=== PATIENT | female | born 1955 | race Two or more races ===

== ENCOUNTER 2021-05-16 10:59 | Outpatient (CLI) | payer OTHER | END 2021-05-16 23:59 | disposition home or self-care (01) | LOC: LAB 10:59 | PROVIDERS: ATTEND Specialist | DX: Z01.812 Encounter for preprocedural laboratory examination (principal); Z20.822 Contact with and (suspected) exposure to COVID-19 | CPT/HCPCS: C9803; U0003 ==

== ENCOUNTER 2021-05-22 05:04 | Inpatient (IN) | payer OTHER ==
[2021-05-22] VITALS (10 sets, daily range): BP systolic 111–148; BP diastolic 70–90
[~2021-05-22] VITALS: Ht 149.9 cm; Wt 61.2 kg
[~2021-05-22 05:04] MED LIST: ANESTHESIA TRAY IN PYXIS 1 EA TRAY MC ONE
--- NOTE | 2021-05-22 06:22 | NUR ---
PATIENT ARRIVED FOR SURGERY OF RIGHT KNEE ARTHROPLASTY, AMBULATORY. A/O X4. NO S/S OF DISTRESS NOTED. NO COMPLAIN OF PAIN. CALL LIGHT WITHIN REACH. BED IN LOWEST AND LOCKED POSITION. CONSENTS FOR RIGHT KNEE ARTHROPLASTY, BLOOD TRANSFUSION AND ANESTHESIA SIGNED BY THE PATIENT AND ATTACHED TO THE CHART. NPO SINCE 1999. LEFT HAND IV INSERTED. PATIENT' S OWN WALKER AT THE BEDSIDE, WILL ENDORSE TO THE NEXT SHIFT RN.
[2021-05-22] MEDS ORDERED: POLYMYXIN B SULFATE 500,000 UNITS ONE (06:25)
[2021-05-22] MEDS ORDERED: BUPIVACAINE 0.5 % PF 150 MG/30 ML VIAL ONE ×2 (06:26→06:53)
[2021-05-22] MEDS ORDERED: ANESTHESIA TRAY IN PYXIS 1 EA TRAY MC ONE (06:26)
--- NOTE | 2021-05-22 06:40 | NUR ---
PATIENT IS ALREADY PICKED UP FOR SURGERY.
[2021-05-22] MEDS ORDERED: HYDROMORPHONE INJ 2 MG/ML DISP.SYRIN ONE (06:52)
[2021-05-22] MEDS ORDERED: TRANEXAMIC ACID 3,000 MG in SODIUM CHLORIDE IRRIG SOLUTION 70 ML IR ONE (07:00)
--- NOTE | 2021-05-22 07:22 | NUR ---
RN OPENING NOTES REPORTED FROM ORIN VELASQUEZ EMT INTERMEDIATE THAT PT IS IN SURGERY FOR RIGHT KNEE ARTHROPLASTY.
[2021-05-22] MEDS ORDERED: BUPIVACAINE 0.25% 75 MG/30 ML VIAL ONE (08:23)
[2021-05-22] MEDS ORDERED: FENTANYL PF 100MCG/2ML AMPUL ONE (08:55)
--- NOTE | 2021-05-22 10:10 | NUR ---
MS RN NOTES PT RETURNED FROM SURGERY AT 0935 VIA HER BED ACCOMPANIED BY ORIN IRVIN AND ARPIT S/P RIGHT TOTAL KNEE ARTHROPLASTY. PT IS AWAKE, A/O X4, ABLE TO MAKE NEEDS KNOWN. V/S TAKEN AND RECORDED. PT ON ROOM AIR, BREATHING EVEN AND UNLABORED. PT WITH RIGHT KNEE DRESSING C/D/I WRAPPED WITH YVES BANDAGE AND COLD COMPRESS APPLIED AT SITE. PT WITH IVF OF D5 1/2 NS AT 125 ML/HR RUNNING TO LEFT HAND G#22, NO S/S X OF INFILTRATION NOTED. ALL ORDERS RECEIVED AND WILL CARRY OUT. PT PROVIDED WITH INCENTIVE SPIROMETER AND DEMONSTRATED HOW TO USE IT AND PT VERBALIZED UNDERSTANDING. SAFETY MEASURES MAINTAINED: BED IN LOWEST LOCKED POSITION WITH SR UP X2. CALL LIGHT W/IN EASY REACH OF PT. WILL CONTINUE TO MONITOR PT.
[2021-05-22] MEDS: IV D5/0.45 NACL 1,000 ML IV PRN ×2 (10:19→18:59)
[2021-05-22] MEDS ORDERED: HYDROMORPHONE 1 MG/1 ML DISP.SYRIN IM/IV/SC ONE (10:26)
[2021-05-22] MEDS ORDERED: MAG HYDROX/AL HYDROX/SIMETH 30 ML UDC PO PRN (10:30)
[2021-05-22] MEDS ORDERED: MENTHOL/CETYLPYRD (CEPACOL) 1 LOZ LOZENGE PO PRN (10:30)
[2021-05-22] MEDS ORDERED: CLONIDINE HCL 0.1 MG TABLET PO PRN (10:30)
[2021-05-22] MEDS ORDERED: ONDANSETRON HCL/PF 4 MG/2 ML VIAL IV PRN (10:30)
[2021-05-22] MEDS ORDERED: diphenhydrAMINE HCL 25 MG CAPSULE PO PRN (10:30)
--- NOTE | 2021-05-22 10:45 | NUR ---
RN NOTES PT C/O ACHING AND THROBBING PAIN ON RIGHT KNEE, 6/10 SCALE. DILAUDID 0.5MG/0.5ML IVP ADMINISTERED AT 1044 PER MD ORDER. WILL CONTINUE TO MONITOR AND REASSESS PT.
[2021-05-22] MEDS ORDERED: oxyCODONE IR immediate release 5 MG PO ONE (12:00)
--- NOTE | 2021-05-22 12:04 | NUR ---
RN NOTES PT C/O ACHING AND THROBBING PAIN ON RIGHT KNEE, 6/10 SCALE. OXY IR 5MG TAB PO ADMINISTERED AT 1202 PER MD ORDER. WILL CONTINUE TO MONITOR AND REASSESS PT.
[2021-05-22] MEDS: ANCEF 1 GM/50 ML D5W IV SCH ×4 (15:09→22:29)
[2021-05-22] MEDS: oxyCODONE IR immediate release 5 MG PO PRN (16:00)
--- NOTE | 2021-05-22 16:01 | NUR ---
RN NOTES PT C/O ACHING AND THROBBING PAIN ON RIGHT KNEE, 5/10 SCALE. OXY IR 5MG TAB PO ADMINISTERED AT 1600 PER MD ORDER. WILL CONTINUE TO MONITOR AND REASSESS PT.
[2021-05-22] MEDS: DOCUSATE SODIUM 100 MG CAPSULE PO SCH (16:03)
[2021-05-22] MEDS: HYDROMORPHONE 1 MG/1 ML DISP.SYRIN IM/IV/SC PRN (18:04)
--- NOTE | 2021-05-22 18:10 | NUR ---
RN NOTES PT COMPLAINED OF ACHING AND THROBBING PAIN ON RIGHT KNEE, 8/10 SCALE. DILAUDID 0.5MG/0.5ML IVP ADMINISTERED AT 1804. WILL CONTINUE TO MONITOR AND REASSESS PT.
--- NOTE | 2021-05-22 18:37 | NUR ---
MS RN CLOSING NOTES PATIENT IN BED AWAKE AND WATCHING TV AT THIS TIME. ALERT AND ORIENTED X 4. ABLE TO MAKE NEEDS KNOWN. ON ROOM AIR, BREATHING EVEN AND UN LABORED, NO SOB NOTED DURING THE DAY. RIGHT KNEE DRESSING C/D/I WRAPPED WITH YVES BANDAGE. IVF OF D5 1/2 NS AT 125 ML/HR RUNNING TO LEFT HAND G#22 IV ACCESS, NO S/S X OF INFILTRATION NOTED AT SITE. ALL NEEDS AND CARE ATTENDED WELL. SAFETY MEASURES IN PLACED: BED LOCKED AND IN LOWEST POSITION, SIDE-RAILS UP X2, CALL LIGHT AND TRAY TABLE WITHIN EASY REACH OF PT. WILL ENDORSE CARLOS TO SHANK TAPER NURSE.
--- NOTE | 2021-05-22 19:45 | NUR ---
MS RN NOTES RECEIVED ON BED SLEEPING,S/P RIGHT KNEE ARTHROPLASTY BY DR CASTRO,DRESSING INTACT AND DRY.WITH IIVF D51/2 NS AT 125ML/HR RATE INFUSING ON LEFT HAND SALINE LOCK VIA IV PUMP.ENCOURAGED TO USE IS WHILE AWAKE.MONITOR FOR PAIN,CALL LIGHT IN REACH,NEEDS ANTICIPATED.
[2021-05-22] MEDS: FAMOTIDINE (20 MG) 20 MG TABLET PO SCH (20:49)
[2021-05-22] MEDS: RIVAROXABAN 10 MG TABLET PO SCH (22:29)
[2021-05-23] MEDS: IV D5/0.45 NACL 1,000 ML IV PRN ×3 (02:04→23:02)
[2021-05-23] MEDS: HYDROMORPHONE 1 MG/1 ML DISP.SYRIN IM/IV/SC PRN ×6 (04:05→22:53)
--- NOTE | 2021-05-23 04:05 | NUR ---
MS RN NOTES PAIN MANAGEMENT C/O RIGHT KNEE PAIN 9/10 ON PAIN SCALE,DILAUDID 0.5MG IV GIVEN ORDERED.
--- NOTE | 2021-05-23 06:02 | NUR ---
MS RN NOTES PAIN MANAGEMENT STILL IN PAIN 8/10 ON PAIN SCALE,DILAUDID 0.5 MG IV GIVEN ORDERED.POSSIBLE PT TODAY FOR AMBULATION,IVF INFUSING WELL ON LEFT HAND SALINE LOCK,ALL DUE MEDS ADMINISTERED,CALL LIGHT IN REACH,NEEDS ATTENDED.
[2021-05-23 06:46] LABS: HEMATOCRIT 30 % (33-45); HEMOGLOBIN 10.2 g/dL (11.5-14.8); LYMPHOCYTES # (AUTO) 1.8 K/uL (0.8-4.8); MEAN CORPUSCULAR HGB CONC 34 g/dl (31.0-36.0); MEAN CORPUSCULAR VOLUME 84 fL (82-100); MONOCYTES % (AUTO) 10.4 % (2.0-12.0); NEUTROPHILS # (AUTO) 6.4 K/uL (1.8-8.9); NEUTROPHILS % (AUTO) 69.6 % (43.0-81.0); PLATELET COUNT (AUTO) 200 K/uL (150-450); RED BLOOD CELL COUNT(AUTO) 3.61 MIL/uL (4.0-5.2); WHITE BLOOD COUNT (AUTO) 9.1 K/uL (4.3-11.0)
[2021-05-23 06:59] LABS: CALCIUM, SERUM 8.1 mg/dL (8.5-10.1); CREATININE 0.6 mg/dL (0.6-1.3); POTASSIUM 3.6 mmol/L (3.5-5.1)
--- NOTE | 2021-05-23 07:28 | NUR ---
RN OPENING NOTE- PATIENT IN BED SLEEPING , EASILUY AWAKENED. ALERT AND ORIENTED X 4. ABLE TO MAKE NEEDS KNOWN. ON ROOM AIR, BREATHING EVEN AND NON-LABORED, NO SOB NOTED . RIGHT KNEE DRESSING C/D/I WRAPPED WITH YVES BANDAGE. IVF OF D5 1/2 NS AT 125 ML/HR RUNNING TO LEFT HAND G#22 IV ACCESS, NO S/S X OF INFILTRATION NOTED AT SITE. ALL NEEDS ATTENDED. SAFETY MEASURES IN PLACED: BED LOCKED AND IN LOWEST POSITION, SIDE-RAILS UP X2, CALL LIGHT AND TRAY TABLE WITHIN EASY REACH OF PT. MONITOR / ASSIST
[2021-05-23 08:35] VITALS: BP 115/72
[2021-05-23] MEDS: DOCUSATE SODIUM 100 MG CAPSULE PO SCH ×2 (09:27→16:46)
[2021-05-23] MEDS: FAMOTIDINE (20 MG) 20 MG TABLET PO SCH ×2 (09:27→21:05)
--- NOTE | 2021-05-23 11:19 | NUR ---
SS Consult: SS consult for discharge planning. Pt. Is a 65-year-old female. Pt. demonstrates adequate insight to the reason for hospitalization. Pt. was oriented x4, alert, and cooperative. During interview, pt. was capable of following directions, made appropriate eye-contact, and appeared groomed. Per pt., she came in for knee surgery due to a having a fall at work. Pt.s speech was at a normal rate. Pt.s mood was elevated. SW explored pt.s hx of mental health and substance abuse. Pt. reported no hx of mental health, substance abuse, suicidal or homicidal ideation. Pt. denies auditory hallucinations, visual hallucinations, paranoia, or delusions. SW explored pt.s living situation. Per pt., she lives alone [[address] [place] [address]]. Pt. stated that she is independent with her ADLs. SW explored pt.s financial status. Per pt., she is currently not working and will be applying for disability due to her knee. Pt. does not have questions or concerns at the moment. Plan: LILO provided available resources and pt. accepted. Once discharge, per pt., she will return to home [[address] [place] [address]]. Per pt., insurance will be setting up transportation for her. Resources Provided: ABUSE PREVENTION: ELDER ABUSE HOTLINE (02/11) ADULT PROTECTIVE SERVICES HOTLINE LONG-TERM CARE [facility] Region AREA ON AGING (HOTLINE) ADULT DAY HEALTH CARE CARE CENTERS: Private pay or Medi-melissa funded adult day care [place] [facility] [place] [facility] , [facility] Services , [facility] , [facility] Adult [facility] Health Care , [facility] Adult Day Health Care , [facility] Adult Daycare Center , [facility] , Benjie Aguilar [facility] , Aldie ALZHEIMERS DISEASE/DEMENTIA: Alzheimers Association Helpline [facility] Chapter www.alz.org/[facility] Department of Aging www.lacity.org Family Caregiver [place] www.caregiver.org [place] Caregiver Resources Center/Family Support www.[facility].org CANCER RESOURCES: [place] Cancer Society www.cancer.org Cancer Support Community www.CancerSupportVvsb.org: CancerCare www.cancercare.org [facility] Cancer Support Midwest www.[facility].org [facility] HEALTH ASSOCIATIONS: AARP www.aarp.org ALS Association (ask for Nicole) www.als.org [place] Diabetes Association www.diabetes.org [place] Heart Association www.heart.org Belgian Lung Association www.lungusa.org Belgian Parkinson Disease Association www.apdaparkinson.org Belgian Wolford , www.redcross.org Arthritis Foundation www.arthritis.org Crohns & Colitis Foundation of Belgian www.ccfa.org/chapters/jayshree National Multiple Sclerosis Society www.nationalmssociety.org Myasthenia Gravis Foundation www.myasthenia-ca.org National Stroke Association www.stroke.org CONSERVATORSHIP & GUARDIANSHIP: AARP Felicitas Dow Legal Services Center for Health Care Rights Eldercare Information and Referral Electrical Instrument Maker Foundation [facility]: [facility] Bar Referral Service [facility] Neighborhood Legal Services Office of the Public Guardian Cost EYESIGHT DISORDER RESOURCES: [place] Macular Degeneration Foundation [facility] www.[facility].org GRIEF AND BEREAVEMENT RESOURCES: The [place] , [facility] THE HOPE Connection , [facility] Bereavement Center , [place] HEARING DISORDER RESOURCES: [place] Telephone Access Program Deaf and Disabled Telecommunications Program www.ddtp.[facility].ca.gov HearRx Hearing Centers (Bureau) Better Hearing Systems , [place] GLAD ([facility] Agency on Deafness) V/ TTY; Marketing Project Manager , [facility] Hearing [facility] -low income hearing aid assistance www.[place] heart institutefoundation.org [place] [facility] , Sonya HELP AT HOME CAREGIVER SUPPORT: In Home Support Services (Must have Medi-Melissa to be eligible) *Ask for a list of agencies that provide services to assist with care in the home. Local Senior Centers also have listings of care providers. HOME SAFETY MODIFICATIONS AND EQUIPMENT: Senior centers have additional referrals. [place] Housing and Community Investment Dept. Handyworker Program (low income) or Visit http://hcidla.[facility].org/sqy-jhpjcz-nf for more information National Seating and Mobility and/or ; Forever Active www.Mont[employer] Financial Stay Home Safe www.Stayhomesafe.com LIFE ALERT RESPONSE SYSTEM: Kypha Services 753-464-0035 www. Get Satisfaction Life Alert 360-706-2039 www.POI.edo Life Station 028-363-1430 www.TTCP Energy Finance Fund II.edo Safe Return 271-623-6973 www.VAZATA.or/safereturn Cell Phones for Seniors www.Ground Zero [employer] Corporation MEALS AND FOOD PROGRAMS: [place] Meals on Wheels [phone] [place] Meals on Wheels [phone] [facility] [phone] [place] to the Homebound [phone] [place] to the Homebound [phone] [facility] to the Homebound [phone] [facility] to the Homebound [phone] [facility] Hospital[facility]ie [phone] [facility] [phone] ONE Generation [phone] [facility] [phone] [facility] [phone] Meals on Wheels [phone] For all ages: $6.85/ meal w side. Delivered M-F from 10 am-1pm. Application and payment is done over the phone. Frozen meals available for weekends. Emergency Food [facility] [phone] [facility] Day Haul Youth Supervisor [phone] [facility] [phone] [facility]- Brown bag lunches [phone] [facility] [phone] MEAL/GROCERY DELIVERY PROGRAMS: [facility] Gourmet Meals [phone]- [facility] [phone]- [facility] Magic Kitchen [phone] Moms Meals [phone] (ask Dejesus for Discount Select grocery stores may provide delivery. MEDICAL INSURANCE SUPPORT SERVICES: Center for Health Care Rights [phone] Health Insurance Counseling/Advocacy Programs (HICAP)-Must have Medicare. Offers counseling for Medi-Melissa eligibility [phone] Department of Public Day Haul Youth Supervisor [phone] www.[facility].ca.gov Medicare [phone] www.socialsecurity.org Social Security [phone] SENIOR ACTIVITY PROGRAMS: *Contact a local senior center, adult school, recreation facility or community college for education, fitness, recreation, and social programs. Aquatic Therapy and Adapted Exercise programs through [facility] [phone] Encore at [facility] [phone] www.[facility]/encore U- Senior Friends [phone] [place] Senior Programs 834-755-1688 www.oasisnet.org Suddenly 65 www..edo SENIOR CENTERS: [facility] [phone] [facility] Newman [phone] [facility] [phone] [facility] [phone] [facility] [phone] [facility] [phone] [facility] [phone] [facility] [phone] One [facility] [phone] [facility] [phone] [facility] [phone] [facility] [phone] [facility] [phone] TRANSPORTATION: Local [facility] may have applications for transportation programs and additional resources. ACCESS Services [phone] Transportation for seniors and disabled persons 7 days a week requiring 254 hr. advance reservation. Must apply and register for program lilian eligible. Ridejoy [phone] or [phone] Transportation for seniors and persons with ADA card/metro disabled card in the [facility]. M-F only. Must register for services. ONE GENERATION [phone] Serves 65 years + in conjunction with city ride program. Must be registered with both programs. A to B Transport [phone] Provides wheelchair/gurney van service. Adult Medical Transport [phone] Accepts [facility] with prior authorization. Care Van [phone] Provides wheelchair Transport. City Wide Transportation [phone] Provides gurney service Gentle Care [phone] Gurney Transport. All Town Transportation [phone] wheelchair & gurney transport D Transportation [phone] wheelchair & gurney transport [place] Non-Emergency Transport [phone] wheelchair & gurney transport [facility] [phone] Short Term Transportation primarily for adults with disabilities on social security income. Nominal fee may apply and a reservation is required. [facility] Cab [phone] or [phone] [facility] [phone] [place] [address] Services [phone] For additional programs & services VETERANS RESOURCES: Submissions for Aid and Attendance should be done directly to Federal VA office locatd at : [facility] [phone] [place] [address]. [facility] [phone] National Caregiver Support Line [phone] Melissa [facility] Veterans Services Field Office [phone] [place] Department of Affairs [phone] Pension Information [phone]
[2021-05-23] MEDS: oxyCODONE IR immediate release 5 MG PO PRN ×3 (11:34→18:48)
[2021-05-23 16:11] VITALS: BP 153/76
[2021-05-23] MEDS: RIVAROXABAN 10 MG TABLET PO SCH (16:45)
--- NOTE | 2021-05-23 18:39 | NUR ---
RN CLOSING NOTE- PATIENT IN BED ALERT AND ORIENTED X 4. ABLE TO MAKE NEEDS KNOWN. ON ROOM AIR, BREATHING EVEN AND NON-LABORED, NO SOB NOTED . RIGHT KNEE DRESSING C/D/I WRAPPED WITH YVES BANDAGE. IVF OF D5 1/2 NS AT 125 ML/HR RUNNING TO LEFT HAND G#22 IV ACCESS, NO S/S X OF INFILTRATION NOTED AT SITE. ALL NEEDS ATTENDED. SAFETY MEASURES IN PLACED: BED LOCKED AND IN LOWEST POSITION, SIDE-RAILS UP X2, CALL LIGHT AND TRAY TABLE WITHIN EASY REACH OF PT. MONITOR / ASSIST
[2021-05-23 20:00] VITALS: BP 152/72
--- NOTE | 2021-05-23 20:00 | NUR ---
MS RN OPENING NOTES: RECEIVED PATIENT AWAKE IN BED, BED IN LOW POSITION CALL LIGHTS WITHIN REACH, NO COMPLAIN OF PAIN AND DISCOMFORT AT THIS TIME, PATIENT ON ROOM AIR SATURATING WELL, WITH IV LINE AT LEFT HAND 322 WITH ONGOING D5 1/2NSS@125ML PER HOUR INFUSING WELL, PATIENT IS A/O X4 ABLE TO EXPRESS NEEDS, PATIENT KEPT CLEAN AND DRY ALL NEED MET, WILL CONTINUE TO MONITOR.
[2021-05-24] MEDS: oxyCODONE IR immediate release 5 MG PO PRN ×3 (02:42→16:24)
[2021-05-24] MEDS: HYDROMORPHONE 1 MG/1 ML DISP.SYRIN IM/IV/SC PRN ×4 (06:05→20:08)
--- NOTE | 2021-05-24 06:36 | NUR ---
MS RN CLOSING NOTE: PATIENT AWAKE IN BED, BED IN LOW POSITION, CALL LIGHTS WITHIN REACH, NO COMPLAIN OF PAIN AND DISCOMFORT AT THIS TIME, ON PAIN MANAGEMENT, ON ROOM AIUR SATURATING WELL, NO SOB WAS OBSERVED PATIENT WITH IV LINE AT LEFT HAND #22 WITH ONGOING D5 1/2 NSS @125ML PER HOUR INFUSING WELL, KEPT CLEAN AND DRY, ALL NEEDS MET, ENDORSE TO INCOMING SHIFT.
--- NOTE | 2021-05-24 07:24 | NUR ---
MS RN OPENING NOTES PATIENT ON BED ALERT/ ORIENTED X 4. PATIENT IS ON ROOM AIR TOLERATING WELL, WITH NO SIGNS OF DISTRESS. ABLE TO VERBALIZE NEEDS, NO COMPLAIN OF PAIN AT THIS TIME. PATIENT WITH IV ACCESS ON LEFT HAND G22 WITH IV FLUID OF D5 1/2 NSS RUNNING AT 125ML/HR. WITH RIGHT KNEE DRESSING, DRY AND INTACT. SAFETY MEASURES IN PLACED. CALL LIGHT WITHIN REACH. BED ON LOWEST LOCKED POSITION, SIDE RAILS UP X2. WILL CONTINUE TO MONITOR PATIENT.
--- NOTE | 2021-05-24 07:29 | NUR ---
RN NOTES: SPOKE TO DR VELA AND WAS GIVEN AN UPDATE TO PATIENT, DR VELA ORDER TO GIVE OXY IR BEFORE MY SHIFT CHANGE FOR PATIENT PREPARATION FOR PT ASSESSMENT NOTED AND CARRIED OUT.
[2021-05-24 08:54] VITALS: BP 152/79
[2021-05-24] MEDS: DOCUSATE SODIUM 100 MG CAPSULE PO SCH ×2 (08:54→16:24)
[2021-05-24] MEDS: FAMOTIDINE (20 MG) 20 MG TABLET PO SCH ×2 (08:54→20:08)
[2021-05-24] MEDS ORDERED: oxyCODONE IR immediate release 5 MG PO ONE (09:22)
[2021-05-24] MEDS ORDERED: TRAM50TA2 MT (12:00)
[2021-05-24] MEDS ORDERED: RIVA10TA PO (12:00)
[2021-05-24 16:00] VITALS: BP 147/70
[2021-05-24] MEDS: RIVAROXABAN 10 MG TABLET PO SCH (16:25)
[2021-05-24] MEDS: ENSURE ENLIVE 237 ML LIQUID (VANILLA) PO SCH (17:00)
--- NOTE | 2021-05-24 18:48 | NUR ---
MS RN CLOSING NOTES PATIENT ON BED ALERT/ ORIENTED X 4. PATIENT IS ON ROOM AIR TOLERATING WELL, WITH NO SIGNS OF DISTRESS. ABLE TO VERBALIZE NEEDS, NO COMPLAIN OF PAIN AT THIS TIME. PATIENT WITH IV ACCESS ON LEFT HAND G22 ON SALINE LOCK. WITH RIGHT KNEE DRESSING, DRY AND INTACT. SAFETY MEASURES IN PLACED. CALL LIGHT WITHIN REACH. BED ON LOWEST LOCKED POSITION, SIDE RAILS UP X2. WILL ENDORSE TO NEXT SHIFT FOR CONTINUITY OF CARE.
--- NOTE | 2021-05-24 19:25 | NUR ---
MS RN OPENING NOTES RECEIVED PATIENT LAYING AWAKE IN BED. A/O X4. PATIENT WITH REGULAR AND UNLABORED BREATHING ON ROOM AIR, TOLERATED WELL. NO SIGNS OR SYMPTOMS OF DISTRESS NOTED AT THIS TIME. NO COMPLAINS OF PAIN OR DISCOMFORT AT THIS TIME. IV ACCESS L HAND G #22 SL. IV ACCESS PATENT AND INTACT. SAFETY PRECAUTIONS ENFORCED WITH BED LOCKED AND AT LOWEST POSITION. SIDERAILS UP X2. CALL LIGHT WITHIN REACH AT ALL TIMES. WILL CONTINUE TO MONITOR PATIENT.
[2021-05-24 20:00] VITALS: BP 144/74
--- NOTE | 2021-05-24 20:09 | NUR ---
MS RN NOTES PATIENT COMPLAINED OF PAIN ADMINISTERED DILAUDID ORDERED BY THE HOSPITALIST. WILL CONTINUE TO MONITOR PATIENT.
[2021-05-25] MEDS: HYDROMORPHONE 1 MG/1 ML DISP.SYRIN IM/IV/SC PRN ×2 (01:17→04:58)
--- NOTE | 2021-05-25 01:18 | NUR ---
MS RN NOTES PATIENT COMPLAINED OF PAIN ADMINISTERED DILAUDID ORDERED BY THE HOSPITALIST. WILL CONTINUE TO MONITOR PATIENT.
--- NOTE | 2021-05-25 05:00 | NUR ---
MS RN NOTES PATIENT COMPLAINED OF PAIN ADMINISTERED DILAUDID ORDERED BY THE HOSPITALIST. WILL CONTINUE TO MONITOR PATIENT.
--- NOTE | 2021-05-25 06:46 | NUR ---
MS RN CLOSING NOTES PATIENT STILL LAYING AWAKE IN BED. A/O X4. PATIENT WITH REGULAR AND UNLABORED BREATHING ON ROOM AIR, TOLERATED WELL. NO SIGNS OR SYMPTOMS OF DISTRESS NOTED AT THIS TIME. NO COMPLAINS OF PAIN OR DISCOMFORT AT THIS TIME. IV ACCESS L HAND G #22 SL. IV ACCESS PATENT AND INTACT. SAFETY PRECAUTIONS ENFORCED WITH BED LOCKED AND AT LOWEST POSITION. SIDERAILS UP X2. CALL LIGHT WITHIN REACH AT ALL TIMES. WILL ENDORSE CONTINUITY OF CARE TO DAY SHIFT NURSE.
--- NOTE | 2021-05-25 07:17 | NUR ---
MS RN OPENING NOTES PATIENT ON BED ALERT/ ORIENTED X 4. PATIENT IS ON ROOM AIR TOLERATING WELL, WITH NO SIGNS OF DISTRESS. ABLE TO VERBALIZE NEEDS, NO COMPLAIN OF PAIN AT THIS TIME. PATIENT WITH IV ACCESS ON LEFT HAND G22 ON SALINE LOCK. WITH RIGHT KNEE DRESSING, DRY AND INTACT. SAFETY MEASURES IN PLACED. CALL LIGHT WITHIN REACH. BED ON LOWEST LOCKED POSITION, SIDE RAILS UP X2. WILL CONTINUE TO MONITOR PATIENT.
[2021-05-25] MEDS: oxyCODONE IR immediate release 5 MG PO PRN ×5 (07:42→23:59)
[2021-05-25] MEDS: DOCUSATE SODIUM 100 MG CAPSULE PO SCH ×2 (08:18→17:20)
[2021-05-25] MEDS: FAMOTIDINE (20 MG) 20 MG TABLET PO SCH ×2 (08:18→20:01)
[2021-05-25] MEDS: ENSURE ENLIVE 237 ML LIQUID (VANILLA) PO SCH ×2 (09:00→17:00)
[2021-05-25] MEDS: RIVAROXABAN 10 MG TABLET PO SCH (17:21)
--- NOTE | 2021-05-25 19:00 | NUR ---
MS RN CLOSING NOTES PATIENT ON BED ALERT/ ORIENTED X 4. PATIENT IS ON ROOM AIR TOLERATING WELL, WITH NO SIGNS OF DISTRESS. ABLE TO VERBALIZE NEEDS, NO COMPLAIN OF PAIN AT THIS TIME. PATIENT WITH NO IV ACCESS, REFUSED FOR THE MEANTIME, MD AWARE. WITH RIGHT KNEE DRESSING, DRY AND INTACT. SAFETY MEASURES IN PLACED. CALL LIGHT WITHIN REACH. BED ON LOWEST LOCKED POSITION, SIDE RAILS UP X2. WILL ENDORSE PATIENT FOR CONTINUITY OF CARE.
[2021-05-25 20:00] VITALS: BP 146/77
--- NOTE | 2021-05-25 22:25 | NUR ---
rechecked temp 98.4
[2021-05-26] MEDS: oxyCODONE IR immediate release 5 MG PO PRN ×5 (03:05→17:19)
--- NOTE | 2021-05-26 06:35 | NUR ---
RN CLOSING NOTES Patient is A&Ox4, VS WNL. Only c/o overnight is R knee pain relieved by PRN Oxycodone when needed. Currently using bedpan not walking to restroom yet. No other c/o, no signs of distress. Able to verbalize needs. All needs met by staff promptly.
[2021-05-26 06:56] LABS: BASOPHILS % (AUTO) 0.2 % (0.0-2.0); HEMATOCRIT 29 % (33-45); HEMOGLOBIN 9.5 g/dL (11.5-14.8); LYMPHOCYTES # (AUTO) 1.7 K/uL (0.8-4.8); LYMPHOCYTES % (AUTO) 21.1 % (20.0-44.0); MEAN CORPUSCULAR HGB CONC 33 g/dl (31.0-36.0); MEAN CORPUSCULAR VOLUME 85 fL (82-100); MONOCYTES % (AUTO) 12.2 % (2.0-12.0); NEUTROPHILS # (AUTO) 5.2 K/uL (1.8-8.9); NEUTROPHILS % (AUTO) 66.5 % (43.0-81.0); PLATELET COUNT (AUTO) 253 K/uL (150-450); RED BLOOD CELL COUNT(AUTO) 3.36 MIL/uL (4.0-5.2); WHITE BLOOD COUNT (AUTO) 7.9 K/uL (4.3-11.0)
[2021-05-26 07:33] LABS: CALCIUM, SERUM 8.8 mg/dL (8.5-10.1); CREATININE 0.5 mg/dL (0.6-1.3); POTASSIUM 3.2 mmol/L (3.5-5.1)
[2021-05-26] MEDS: FAMOTIDINE (20 MG) 20 MG TABLET PO SCH (07:59)
[2021-05-26] MEDS: DOCUSATE SODIUM 100 MG CAPSULE PO SCH ×2 (07:59→17:19)
[2021-05-26 08:00] VITALS: BP 130/72
[2021-05-26] MEDS ORDERED: POTASSIUM CHLORIDE 20 MEQ TAB.PRT.SR PO ONE (08:30)
[2021-05-26] MEDS: ENSURE ENLIVE 237 ML LIQUID (VANILLA) PO SCH ×2 (09:00→17:00)
[2021-05-26 16:00] VITALS: BP 134/74
[2021-05-26] MEDS: RIVAROXABAN 10 MG TABLET PO SCH (17:20)
[2021-06-05] MEDS ORDERED: ASPIRIN 325 MG TABLET PO SCH (09:00)
== END 2021-05-26 19:10 | disposition home health service (06) | DRG 470 ==
LOC: DS 05:04 → MED 05:08
PROVIDERS: ADMIT Nurse Practitioner Acute Care; ATTEND Nurse Practitioner Acute Care
PROC: 0SRC0J9 Replacement of Right Knee Joint with Synthetic Substitute, Cemented, Open Approach (ICD-10-PCS; principal; 2021-05-22)
DX: M17.11 Unilateral primary osteoarthritis, right knee (principal); Z98.1 Arthrodesis status; Z20.822 Contact with and (suspected) exposure to COVID-19; X58.XXXA Exposure to other specified factors, initial encounter; Y99.0 Civilian activity done for income or pay; D63.8 Anemia in other chronic diseases classified elsewhere; E87.6 Hypokalemia
CPT/HCPCS: 36415; 80048-TC; 85025-TC; 87081-TC; 88305-TC; 88311-TC; 97110-TC; 97116-TC; 97530-TC; 97760-TC; A4217; C1713; C1776; G0378; J0690; J1100; J1170; J1885; J2405; J2704; J3010; J3490; J7030; J7060; L1830